=== PATIENT | female | born 1985 | race Caucasian/White ===

== ENCOUNTER 2017-01-21 19:42 | Emergency (ER) | payer MEDICAID, OTHER ==
[~2017-01-21] VITALS: Ht 162.6 cm; Wt 55.5 kg
[2017-01-21] MEDS ORDERED: CEFTRIAXONE 1,000 MG ONE (20:40)
[2017-01-21] MEDS ORDERED: DEXAMETHASONE 4 MG TABLET ONE (20:41)
[2017-01-21] MEDS ORDERED: ACETAMINOPHEN 325 MG TABLET ONE (20:42)
[2017-01-21] MEDS ORDERED: ACETAMINOPHEN 650 MG/20.3 ML UDC ONE (20:46)
[2017-01-21] MEDS ORDERED: DEXAMETHASONE 4 MG TABLET PO ONE (21:00)
[2017-01-21] MEDS ORDERED: ACETAMINOPHEN 325 MG TABLET PO ONE (21:00)
[2017-01-21] MEDS ORDERED: CEFTRIAXONE 1,000 MG IM ONE (21:00)
[2017-01-21 21:28] VITALS: BP 109/64
== END 2017-01-21 21:30 | disposition home or self-care (01) ==
LOC: ED 20:37
DX: J02.0 Streptococcal pharyngitis (principal); R50.9 Fever, unspecified
CPT/HCPCS: 96372; 99283; J0696